=== PATIENT | female | born 1945 | race Caucasian/White ===

== ENCOUNTER → 2017-09-01 | Outpatient (CLI) | payer OTHER ==
[~2017-09-01] MED LIST: ALBUTEROL IH; ASPI-1181 PO; CLOP75TA14 PO; METO-391 PO; OMEG-148 PO; ROSU5TAB18 PO; VALA500T38 PO
== END | disposition home or self-care (01) ==
LOC: RAH 08:26
PROVIDERS: ATTEND Family Medicine
DX: Z12.31 Encounter for screening mammogram for malignant neoplasm of breast (principal)
CPT/HCPCS: 77067

== ENCOUNTER → 2017-10-10 | Outpatient (CLI) | payer OTHER ==
[~2017-10-10] MED LIST changes: +ALBUTERAL INHALER IH; +DIPH25 PO; +FISH1CAP49 PO; +LOSA50TA37 PO; +ROSU5TAB11 PO; -ROSU5TAB18 PO; +SYMBICORT IH
== END | disposition home or self-care (01) ==
LOC: SHCH 13:30
PROVIDERS: ATTEND Internal Medicine Cardiovascular Disease
DX: I25.10 Atherosclerotic heart disease of native coronary artery without angina pectoris (principal)
CPT/HCPCS: 93880

== ENCOUNTER → 2017-10-24 | Outpatient (CLI) | payer OTHER ==
[~2017-10-24] MED LIST changes: +ISOVUE-370 50ML VIAL IV ONE
== END | disposition home or self-care (01) ==
LOC: OIH 07:45
PROVIDERS: ATTEND Internal Medicine Cardiovascular Disease
DX: I65.23 Occlusion and stenosis of bilateral carotid arteries (principal); I70.90 Unspecified atherosclerosis; I77.9 Disorder of arteries and arterioles, unspecified
CPT/HCPCS: 70498; Q9967

== ENCOUNTER 2017-12-01 07:44 | Day surgery (SDC) | payer OTHER ==
[2017-11-28 10:35] VITALS: BP 182/91
[2017-11-28 11:17] LABS: HEMOGLOBIN A1C 5.8 % (4.0-6.0)
[2017-11-28 11:30] LABS: BILIRUBIN,TOTAL 0.6 mg/dL (0.2-1.0); CREATININE 0.7 mg/dL (0.5-1.5); POTASSIUM 4.4 mmol/L (3.5-5.1); T4 (THYROXINE) 6.4 mcg/dL (4.7-13.3); THYROID STIMULATING HORMONE 1.47 uIU/mL (0.36-3.74); TOTAL PROTEIN, SERUM 7.1 g/dL (6.0-8.3)
[2017-11-28 11:47] LABS: BASOPHILS % (AUTO) 0.8 % (0.0-5.0); EOSINOPHILS % (AUTO) 2.1 % (0.0-8.0); HEMATOCRIT 39.1 % (36-48); LYMPHOCYTES % (AUTO) 31.4 % (21.0-51.0); MEAN CORPUSCULAR HEMOGLOBIN 34.6 pg (27.0-33.0); MEAN CORPUSCULAR HGB CONC 35.8 g/dL (32.0-36.0); MEAN CORPUSCULAR VOLUME 96.8 fL (79-99); MONOCYTES % (AUTO) 7.6 % (3.0-13.0); NEUTROPHILS % (AUTO) 58.1 % (40.0-77.0); NUCLEATED RED BLOOD CELLS 0.1 % (0.0-0.19); PLATELET COUNT (AUTO) 317 K/uL (130-400); PROTHROMBIN TIME 10.5 SEC (9.6-11.6); RED BLOOD CELL COUNT(AUTO) 4.04 MIL/uL (4.00-5.50); RED CELL DISTRIBUTION WIDTH 13.3 % (11.0-15.5); WHITE BLOOD COUNT (AUTO) 5.2 K/uL (4.8-10.8)
[2017-11-28 11:56] LABS: APPEARANCE,URINE Clear (CLEAR); BILIRUBIN,URINE Negative (NEGATIVE); COLOR,URINE Yellow (YELLOW); GLUCOSE, URINE (UA) Negative (NEGATIVE); KETONES,URINE Negative (NEGATIVE); LEUKOCYTE ESTERASE ,URINE Trace (NEGATIVE); NITRATE,URINE Negative (NEGATIVE); OCCULT BLOOD,URINE Negative (NEGATIVE); PROTEIN,URINE Negative (NEGATIVE); UROBILINOGEN,URINE 0.2 mg/dL (0.2-1.0)
[2017-11-28 12:04] LABS: BACTERIA,URINE Rare /HPF (None Seen); RBC,URINE 0-1 /HPF (0-1); SQUAMOUS EPITHELIAL CELL,UR Rare /HPF (0-2); WBC,URINE 0-1 /HPF (0-1)
[2017-12-01] VITALS (10 sets, daily range): BP systolic 125–156; BP diastolic 54–77
[~2017-12-01] VITALS: Ht 154.9 cm; Wt 64.3 kg
[~2017-12-01 07:44] MED LIST changes: -ALBUTERAL INHALER IH; -DIPH25 PO; -FISH1CAP49 PO; -ISOVUE-370 50ML VIAL IV ONE; -LOSA50TA37 PO; -SYMBICORT IH
[2017-12-01] MEDS ORDERED: SODIUM CHLORIDE 0.9% 1000ML 1,000 ML IV ONE (09:36)
[2017-12-01] MEDS ORDERED: HEPARIN SODIUM 1000UNIT/ML 10ML VIAL ONE (14:06)
[2017-12-01] MEDS ORDERED: ISOVUE-370 50ML VIAL IV ONE ×2 (14:06→15:14)
[2017-12-01] MEDS ORDERED: IOPAMIDOL-370 100 ML VIAL IV ONE (14:06)
[2017-12-01] MEDS ORDERED: SODIUM BICARB 50MEQ 50ML VIAL ONE (14:06)
[2017-12-01] MEDS ORDERED: NITROGLYCERIN 5 MG/ML 10 ML VIAL IV ONE (14:06)
[2017-12-01] MEDS ORDERED: LIDOCAINE HCL 2% 20ML ONE (14:06)
[2017-12-01] MEDS ORDERED: HYDRALAZINE HCL 20 MG/ML VIAL ONE (15:08)
[2017-12-01] MEDS ORDERED: SODIUM CHLORIDE 0.9% 1000ML 1,000 ML IV SCH (15:15)
[2017-12-01] MEDS ORDERED: ACETAMINOPHEN-CODEINE 300/30MG TAB PO PRN (15:15)
[2017-12-01] MEDS ORDERED: ACETAMINOPHEN 325 MG TAB ONE (16:02)
[2017-12-01] MEDS ORDERED: ACETAMINOPHEN 325 MG TAB PO ONE (16:15)
[2018-01-01] MEDS ORDERED: FISH1CAP49 PO (13:48)
[2018-01-01] MEDS ORDERED: SYMBICORT IH (13:48)
[2018-01-01] MEDS ORDERED: ASPI-1181 PO (13:48)
[2018-01-01] MEDS ORDERED: DIPH25 PO (13:48)
[2018-01-01] MEDS ORDERED: LOSA50TA37 PO (13:48)
[2018-01-01] MEDS ORDERED: ALBUTERAL INHALER IH (13:48)
== END 2017-12-01 19:30 | disposition home or self-care (01) ==
LOC: DAH 07:44
PROVIDERS: ATTEND Internal Medicine Cardiovascular Disease
DX: I65.23 Occlusion and stenosis of bilateral carotid arteries (principal); I25.10 Atherosclerotic heart disease of native coronary artery without angina pectoris; Z79.899 Other long term (current) drug therapy; I10 Essential (primary) hypertension; E78.5 Hyperlipidemia, unspecified; F17.200 Nicotine dependence, unspecified, uncomplicated; Z98.890 Other specified postprocedural states; Z82.49 Family history of ischemic heart disease and other diseases of the circulatory system; Z88.0 Allergy status to penicillin; Z88.8 Allergy status to other drugs, medicaments and biological substances
CPT/HCPCS: 36223; 36415; 71045; 80053; 80061; 81001; 83036; 83880; 84436; 84443; 84479; 84481; 85025; 85610; 85730; 93005; 93458; A4606; C1760; C1769; C1894; J0360; J1644; J3490 ×3; J7030; Q9967 ×3; 84439

== ENCOUNTER → 2018-12-09 | Outpatient (CLI) | payer OTHER ==
[~2018-12-09] MED LIST changes: -ALBUTEROL IH; -CLOP75TA14 PO; +DIPH25 PO; +LOSA50TA64 PO; +SYMBICORT IH
== END | disposition home or self-care (01) ==
LOC: SHCH 10:33
PROVIDERS: ATTEND Internal Medicine Cardiovascular Disease
DX: I65.23 Occlusion and stenosis of bilateral carotid arteries (principal); T14.8XXA Other injury of unspecified body region, initial encounter; X58.XXXA Exposure to other specified factors, initial encounter; Y93.89 Activity, other specified; Y92.89 Other specified places as the place of occurrence of the external cause; Y99.8 Other external cause status
CPT/HCPCS: 93880

== ENCOUNTER → 2019-12-02 | Outpatient (CLI) | payer OTHER | END | disposition home or self-care (01) | DX: Z12.31 Encounter for screening mammogram for malignant neoplasm of breast (principal) ==

== ENCOUNTER → 2020-01-27 | Outpatient (CLI) | payer OTHER ==
[~2020-01-27] MED LIST changes: -ASPI-1181 PO; +ASPI-1443 PO; -ROSU5TAB11 PO; +ROSU5TAB12 PO; -VALA500T38 PO; +VALA500T42 PO
== END | disposition home or self-care (01) ==
LOC: SHCH 12:59
PROVIDERS: ATTEND Internal Medicine Cardiovascular Disease
DX: I25.10 Atherosclerotic heart disease of native coronary artery without angina pectoris (principal); R06.00 Dyspnea, unspecified
CPT/HCPCS: 93306; 93880

== ENCOUNTER → 2020-12-01 | Outpatient (CLI) | payer OTHER | END | disposition home or self-care (01) | LOC: RAH 08:27 | PROVIDERS: ATTEND Family Medicine | DX: Z12.31 Encounter for screening mammogram for malignant neoplasm of breast (principal) | CPT/HCPCS: 77067 ==

== ENCOUNTER → 2021-04-03 | Outpatient (CLI) | payer OTHER | END | disposition home or self-care (01) | LOC: SHCH 09:13 | PROVIDERS: ATTEND Internal Medicine Cardiovascular Disease | DX: I65.21 Occlusion and stenosis of right carotid artery (principal) | CPT/HCPCS: 93880 ==

== ENCOUNTER → 2022-11-14 | Outpatient (CLI) | payer OTHER ==
[~2022-11-14] MED LIST changes: +DIPH-1242 PO; -DIPH25 PO
== END | disposition home or self-care (01) ==
LOC: RAH 09:35
PROVIDERS: ATTEND Family Medicine
DX: Z12.31 Encounter for screening mammogram for malignant neoplasm of breast (principal)
CPT/HCPCS: 77067

== ENCOUNTER → 2023-11-17 | Outpatient (CLI) | payer OTHER ==
[~2023-11-17] MED LIST changes: -ROSU5TAB12 PO; +ROSU5TAB43 PO
== END | disposition home or self-care (01) ==
LOC: RAH 11:08
PROVIDERS: ATTEND Family Medicine
DX: Z12.31 Encounter for screening mammogram for malignant neoplasm of breast (principal); R92.323 Mammographic fibroglandular density, bilateral breasts
CPT/HCPCS: 77067

== ENCOUNTER → 2024-04-12 | Outpatient (CLI) | payer OTHER | END | disposition home or self-care (01) | LOC: SHCH 08:02 | PROVIDERS: ATTEND Internal Medicine Cardiovascular Disease | DX: I65.23 Occlusion and stenosis of bilateral carotid arteries (principal); I25.10 Atherosclerotic heart disease of native coronary artery without angina pectoris | CPT/HCPCS: 93880 ==

== ENCOUNTER 2025-02-04 22:05 | Inpatient (IN) | payer OTHER ==
[~2025-02-04] VITALS: Ht 154.9 cm; Wt 61.2 kg
[~2025-02-04 22:05] MED LIST changes: -ROSU5TAB43 PO; +ROSU5TAB51 PO
[2025-02-04 22:52] LABS: CREATININE 0.9 mg/dL (0.5-1.0); GLOMERULAR FILTR. RATE CALC 65.0 mL/min (>90); GLUCOSE,RANDOM 119.0 mg/dL (70-105); SODIUM SERUM 132.0 mmol/L (136-145); UREA NITROGEN, BLOOD 24.0 mg/dL (7-18)
--- NOTE | 2025-02-04 23:18 | ERN ---
General Chief Complaint: Hypertension Stated Complaint: HIGH BP Time Seen by MD: 22:09 Source: patient History of Present Illness Initial Comments Patient is a 79-year-old female with hypertension for which she takes metoprolol and losartan. She states that she was able to control her blood pressure with metoprolol alone for years and that recently her blood pressure started i ncreasing and her primary care doctor added losartan. The losartan was recently increased in dosage because of increased hypertension. Her family practice doctor has her monitoring her blood pressure regularly and earlier today she noted her blood pressure was greater than 220 systolic so she comes to the emergency room. She has no other symptoms. Timing/Duration: unsure Allergies: Coded Allergies: Penicillins (Unverified Allergy, Unknown, 12/01/17) naproxen (Unverified Allergy, Unknown, 12/01/17) Home Meds Reported Medications [Symbicort] No Conflict Check, IH AD PRN for SHORTNESS OF BREATH/WHEEZING 01/01/18 Losartan Potassium (Losartan Potassium) 50 Mg Tablet, 50 MG PO AD PRN for BP OVER 150 OR 180, TAB 01/01/18 Diphenhydramine HCl (Benadryl) 25 Mg Cap, 25 MG PO HS, CAP 01/01/18 Aspirin (Aspirin EC) 81 Mg Tablet.dr, 81 MG PO HS, TAB 01/01/18 [place]-3S/Dha/Epa/Fish Oil (Fish Oil 1,000 mg Softgel) 1 Each Capsule, 1 EACH PO AM, CAP 11/28/17 Rosuvastatin Calcium (Rosuvastatin Calcium) 5 Mg Tablet, 5 MG PO HS, TAB 11/28/17 Valacyclovir HCl (Valacyclovir) 500 Mg Tablet, 500 MG PO HS, TAB 11/28/17 Metoprolol Succinate (Metoprolol Succinate) 50 Mg Tab.er.24h, 50 MG PO HS, TAB 11/28/17 Past Medical History Past Medical History: Hypertension Past Surgical History: Other Surgical History Other: LEFT CARDIECTOMY ROS Dictation Aside from the increased blood pressure she has no symptoms. No headaches no dizziness no lightheadedness no chest pain. Physical Exam General Appearance: (+) mild distress Orientation: (+) alert, (+) oriented x 3 Head/Face Trauma: No Eye: bilateral eye normal inspection, bilateral eye PERRL, bilateral eye EOMI Ear, Nose, Throat: (+) hearing grossly normal, (+) normal ENT inspection, (+) moist mucous membraine Neck: (+) normal inspection, (+) supple, (+) full range of motion Respiratory: (+) chest non-tender, (+) lungs clear, (+) well ventilated Heart: (+) regular, (+) no gallop Vascular: (+) no edema, (+) normal peripheral pulse Gastrointestinal: (+) soft, (+) non-tender, (+) bowel sound present Back: (+) normal inspection Extremities: (+) normal range of motion, (+) non-tender Results Laboratory and Microbiology Lab and Micro Result Laboratory Tests Test 02/04/25 22:26 02/05/25 00:29 Sodium Level 132 mmol/L (136-145) L Potassium Level 3.6 mmol/L (3.5-5.1) Chloride Level 95 mmol/L (101-111) L Carbon Dioxide Level 27 mmol/L (21-32) Blood Urea Nitrogen 24 mg/dL (7-18) H Creatinine 0.9 mg/dL (0.5-1.0) Glomerular Filtration Rate Calc 65 mL/min (>90) Random Glucose 119 mg/dL (70-105) H Total Calcium 9.6 mg/dL (8.5-10.1) Troponin I High Sensitivity 101 ng/L (4-50) *H B-Type Natriuretic Peptide 87 pg/mL (0-100) Urine Color YELLOW (YELLOW) Urine Appearance CLEAR (CLEAR) Urine pH 5.5 (5.0-8.0) Urine Specific [place] 1.011 (1.001-1.031) Urine Protein NEGATIVE mg/dL (NEGATIVE) Urine Glucose (UA) NEGATIVE mg/dL (NEGATIVE) Urine Ketones 5 mg/dL (NEGATIVE) H Urine Occult Blood NEGATIVE (NEGATIVE) Urine Nitrate NEGATIVE (NEGATIVE) Urine Bilirubin NEGATIVE mg/dL (NEGATIVE) Urine Urobilinogen 0.2 mg/dL (0.2-1.0) Urine Leukocyte Esterase 250 Deisy/uL (NEGATIVE) H Urine RBC 2-5 /HPF (0-1) H Urine WBC 6-10 /HPF (0-1) H Urine Squamous Epithelial Cells MOD /HPF (0-2) Urine Bacteria MANY /HPF (None Seen) MDM MDM: Differential diagnosis: Acute AK, medication failure, renin angiotensin disorder, increased salt intake, Rationale: Tests considered and ordered secondary to shared decision making include: Previous outside records reviewed: Old ER visits. Risk of complication and/or morbidity or mortality of patient management: None Medications-Per medication reconciliation Need for hospitalization: Patient does meet criteria for hospitalization. Need for emergency major/minor surgery: No There are no social concerns with this patient. Prescription drug management Prescriptions will include symptomatic care Patient's prior external medical records from other ER visits were reviewed by me as indicated. Prior testing and results from previous visits were reviewed. Prior tests were taken into account with medical decision making and resource utilization, independent historian/historians were used to obtain complete medical history. EKG showed normal sinus rhythm possible left atrial enlargement. 2.5 mg dose of metoprolol has brought patient's heart rate and blood pressure down to more normal values. Unfortunately the metoprolol did not bring the patient's blood pressure and heart rate down to normal and an additional dose of hydralazine was added which proved ineffective. Also the IV dose of metoprolol as wearing off and the patient's blood pressure and tachycardia are increasing back to the rate they w ere when she came to the emergency room. I will start a Cardene drip and admit her to the hospital. Laboratory analysis shows a troponin of 101. Her BNP is normal. Chemistry panel shows mild hyponatremia hypochloremia. I independently interpreted the test that were performed, results were reviewed by me and considered findings on radiology if ordered. ED Course Orders Procedure Category Date Status Time 12 Lead Ekg Tracing- EKG 02/04/25 Logged Technical 22:16 Basic Metabolic Panel LAB 02/04/25 Complete 22:16 Metoprolol Tartrate PHA 02/04/25 Complete (Lopressor) 22:30 Troponin I High LAB 02/04/25 Complete Sensitivity 23:16 B-Type Natriuretic LAB 02/04/25 Complete Peptide 23:16 Hydralazine 20mg Inj PHA 02/04/25 Complete (Apresoline 20mg In 23:30 Metoprolol Succinate PHA 02/05/25 Complete (Toprol Xl) 00:00 Nicardipine 25mg Inj PHA 02/05/25 In Process (Cardene 25mg Inj) 00:30 Urinalysis Profile LAB 02/05/25 Complete 00:33 Culture Urine RAHUL 02/05/25 In Process 00:43 Nitrofurantoin PHA 8/9/25 Verified Monohyd/M-Cryst 09:00 Current Medications Medications (Trade) Dose Ordered Sig/Margarita Route PRN Reason Start Time Stop Time Status Last Admin Dose Admin Hydralazine HCl (APRESOLine 20MG INJ) 20 mg ONCE ONCE IV 02/04/25 23:30 02/04/25 23:31 DC 02/05/25 00:06 Metoprolol Succinate (TopROL XL) 50 mg ONCE ONCE PO 02/05/25 00:00 02/05/25 00:01 DC 02/05/25 00:06 Metoprolol Tartrate (loprESSOR) 2.5 mg ONCE ONCE IV 02/04/25 22:30 02/04/25 22:31 DC 02/04/25 22:28 Nicardipine HCl 25 mg/Sodium Chloride 250 ml @ 0 mls/hr PROTOCOL IV 02/05/25 00:30 03/07/25 00:29 02/05/25 00:47 Vital Signs Date Time Temp Pulse Resp B/P (MAP) Pulse Ox O2 Delivery O2 Flow Rate FiO2 02/05/25 00:47 100 185/65 02/05/25 00:27 91 16 170/63 98 Room Air* 0 02/04/25 23:06 98.2 80 18 166/65 99 Room Air* 0 02/04/25 22:28 99 236/110 02/04/25 22:16 98.2 98 18 250/130 99 Room Air* 0 02/04/25 22:07 97.9 103 20 244/116 98 Room Air DX & DISP Disposition: Inpatient Departure Impression: Primary Impression: Hypertension Condition: Stable Referrals: ABDON FRANCOIS MD (PCP) JAMEEL JESUS MD Feb 04, 2025 23:17
[2025-02-05] VITALS (19 sets, daily range): BP systolic 106–191; BP diastolic 46–86; PULSE 71–90; RESP 12–21; TEMP 97.9–99; O2SAT 99
[2025-02-05 00:41] LABS: APPEARANCE,URINE CLEAR (CLEAR); GLUCOSE, URINE (UA) NEGATIVE (NEGATIVE); LEUKOCYTE ESTERASE ,URINE 250 Leu/uL (NEGATIVE); NITRATE,URINE NEGATIVE (NEGATIVE); OCCULT BLOOD,URINE NEGATIVE (NEGATIVE)
[2025-02-05 00:43] LABS: ADD UA MICROSCOPIC YES
[2025-02-05 00:47] LABS: SQUAMOUS EPITHELIAL CELL,UR MOD /HPF (0-2)
[2025-02-05] MEDS: LACTATED RINGERS 1000ML 1,000 ML IV SCH (01:30)
[2025-02-05] MEDS ORDERED: ALBUTEROL 0.083% 2.5 MG/3 ML INH IH PRN (01:30)
[2025-02-05] MEDS ORDERED: HYDROcodone/APAP 5/325 1 TAB TABLET PO PRN ×2 (01:30→08:00)
[2025-02-05] MEDS ORDERED: LOSA100T59 PO (03:38)
[2025-02-05] MEDS ORDERED: OMEP20TA2 PO (04:49)
[2025-02-05 05:40] LABS: CREATINE KINASE, TOTAL 67 U/L (21-232)
[2025-02-05] MEDS ORDERED: PoTASSium chl 10% ELIXIR 20MEQ 20 MEQ/15 ML UDCUP PO PRN (08:00)
[2025-02-05] MEDS: PoTASSium chloRIDE 20MEQ ER 20 MEQ ERTAB PO PRN (08:33)
[2025-02-05] MEDS: NITROFURANTOIN MONOHYD/M-CRYST 100 MG CAPSULE PO SCH (08:34)
[2025-02-05] MEDS: ASCORBIC ACID 500 MG TAB PO SCH (08:34)
[2025-02-05 08:52] LABS: IMMATURE GRANULOCYTE ABSOLUTE 0.03 K/uL (0-1); NUCLEATED RED BLOOD CELLS 0.0 % (0.0-0.19); PLATELET COUNT (AUTO) 323 K/uL (130-400); RED BLOOD CELL COUNT(AUTO) 4.27 MIL/uL (4.00-5.50); RED CELL DISTRIBUTION WIDTH 18.9 % (11.0-15.5); WHITE BLOOD COUNT (AUTO) 9.8 K/uL (4.8-10.8)
[2025-02-05] MEDS: ENOXAPARIN SODIUM 40 MG/0.4 ML SYRINGE SQ SCH (08:57)
[2025-02-05] MEDS ORDERED: NON-FORMULARY MEDICATION 1 EACH (Omeprazole Magnesium (Prilosec Otc) 20 MG) PO SCH (09:00)
[2025-02-05 09:14] LABS: ASPARTATE AMINOTRANSFERASE 21.0 U/L (10-37); CREATININE 0.8 mg/dL (0.5-1.0); GLOMERULAR FILTR. RATE CALC 75.0 mL/min (>90); GLUCOSE,RANDOM 118.0 mg/dL (70-105); PHOSPHORUS 3.6 mg/dL (2.5-4.9); SODIUM SERUM 134.0 mmol/L (136-145); TOTAL PROTEIN, SERUM 6.5 g/dL (6.0-8.3); UREA NITROGEN, BLOOD 23.0 mg/dL (7-18)
[2025-02-05] MEDS: MAGNESIUM 2GM PREMIX 50ML 50 ML IV PRN (11:05)
--- NOTE | 2025-02-05 11:36 | HP ---
[facility] HISTORY & PHYSICAL Date Patient Seen: Feb 05, 2025 Time of Visit: 11:28 Supervising Physician: Dr Reardon Primary Care Physician: [ ] Outpatient Specialists: [ ] Inpatient Consults: [facility] PROBLEM LIST: NSTEMI type 2 Hypertensive emergency Elevated troponins COPD no exacerbation Hx of Right Carotid endarterectomy 2018 Former smoker HPI: Patient is a 79-year-old female with past medical history for a left carotid endarterectomy performed in 2018, hypertension and former smoker who presented to the emergency department after being evaluated by her PCP. She was found to have systolics greater than 220 and was referred to emergency department. Patient ultimately required to be placed on a Cardene drip and was admitted to the ICU for hypertensive urgency. Other than a UTI patient's remaining labs were grossly normal. Patient remained on the Cardene until this morning when we are able to discontinue with p.r.n. antihypertensives. Her home medications antihypertensives heparin resumed. Patient with an elevated troponin, pending Cardiology consultation. Admitted under critical care Patient full code PAST MEDICAL HX: see above PAST SURGICAL HX: noncontributory SOCIAL HISTORY: No tobacco, ETOH, or illicit drug use Coded Allergies: Penicillins (Unverified Allergy, Unknown, 12/01/17) naproxen (Unverified Allergy, Unknown, 12/01/17) REVIEW OF SYSTEMS: 12 point ROS reviewed with patient. Pertinent positives mentioned above. Otherwise negative. PHYSICAL EXAM: GENERAL: alert, weak, awake oriented x 3 HEENT: EOMI, Sclera non icteric, moist mucosa NECK: Supple, no JVD, trachea midline LUNGS: Clear breath sounds bilaterally. No wheezes HEART: Regular rate and rhythm. Normal S1 and S2, without murmurs ABD: Abdomen soft, nontender. Bowel sounds present EXT: No clubbing cyanosis or edema NEURO: Alert and oriented to person, follows commands Vital Signs (last 8hr) Date Time Temp Pulse Resp B/P (MAP) Pulse Ox O2 Delivery O2 Flow Rate FiO2 02/05/25 08:15 98.1 79 18 145/70 96 Room Air 02/05/25 08:00 99 Room Air* 0 21 02/05/25 07:15 76 14 156/72 97 Room Air 02/05/25 05:41 74 16 116/46 95 02/05/25 05:11 75 17 120/55 95 02/05/25 05:00 76 15 94 02/05/25 04:42 81 21 155/71 96 02/05/25 04:26 90 12 157/70 97 02/05/25 04:21 Room Air* 0 21 02/05/25 04:11 98.8 85 18 147/63 96 02/05/25 04:00 86 14 96 02/05/25 03:56 89 14 150/68 97 02/05/25 03:41 81 16 121/45 96 Room Air* 0 21 LABS: Hematology Labs: Test 02/05/25 05:03 Range/Units White Blood Count 9.8 4.8-10.8 K/uL Red Blood Count 4.27 4.00-5.50 MIL/uL Hemoglobin 12.7 12.0-16.0 g/dL Hematocrit 36.9 36-48 % Mean Corpuscular Volume 86.4 79-99 fL Mean Corpuscular Hemoglobin 29.7 27.0-33.0 pg Mean Corpuscular Hemoglobin Concent 34.4 32.0-36.0 g/dL Red Cell Distribution Width 18.9 H 11.0-15.5 % Platelet Count 323 130-400 K/uL Mean Platelet Volume 10.1 7.5-10.5 fL Immature Granulocyte % (Auto) 0.3 0-1 % Neutrophils (%) (Auto) 80.2 H 40.0-77.0 % Lymphocytes (%) (Auto) 11.5 L 21.0-51.0 % Monocytes (%) (Auto) 6.1 3.0-13.0 % Eosinophils (%) (Auto) 1.7 0.0-8.0 % Basophils (%) (Auto) 0.2 0.0-5.0 % Neutrophils # (Auto) 7.8 H 1.8-7.7 K/uL Lymphocytes # (Auto) 1.1 1.0-4.8 K/uL Monocytes # (Auto) 0.6 0.1-1.0 K/uL Eosinophils # (Auto) 0.17 0.00-0.70 K/uL Basophils # (Auto) 0.02 0.00-0.20 K/uL Absolute Immature Granulocyte (auto 0.03 0-1 K/uL Nucleated Red Blood Cells 0.0 0.0-0.19 % Red Blood Cell Morphology See comments Chemistry Labs: Test 02/05/25 05:03 02/04/25 22:26 Range/Units Sodium Level 134 L 136-145 mmol/L Potassium Level 4.0 3.5-5.1 mmol/L Chloride Level 98 L 101-111 mmol/L Carbon Dioxide Level 28 21-32 mmol/L Blood Urea Nitrogen 23 H 7-18 mg/dL Creatinine 0.8 0.5-1.0 mg/dL Glomerular Filtration Rate Calc 75 >90 mL/min Random Glucose 118 H 70-105 mg/dL Total Calcium 9.0 8.5-10.1 mg/dL Phosphorus Level 3.6 2.5-4.9 mg/dL Magnesium Level 1.50 L 1.80-2.40 mg/dL Total Bilirubin 0.4 0.2-1.0 mg/dL Aspartate Amino Transf (AST/SGOT) 21 10-37 U/L Alanine Aminotransferase (ALT/SGPT) 23 12-78 U/L Alkaline Phosphatase 56 50-136 U/L Total Creatine Kinase 67 21-232 U/L Troponin I High Sensitivity 160 *H 4-50 ng/L Total Protein 6.5 6.0-8.3 g/dL Albumin 3.7 3.5-5.0 g/dL B-Type Natriuretic Peptide 87 0-100 pg/mL DIAGNOSTICS / RADIOLOGY RESULTS: [ ] PLAN Pending cardiology recommendations, telemetry Antibiotics for UTI Cardiac diet Adjustments to antihypertensives Patient reporting a headache, she is on chronic aspirin, we will order a CT scan along with the ultrasounds of bilateral carotids NEURO: Minimize central acting medications as possible. Fall Precautions. Well lighted room through the day and minimize interruptions through the night to prevent acute delirium. PULMONARY: Supplemental 02 as needed Titrate Fio2 to keep Spo2 > or = 90% DuoNebs and CPT as needed IS hourly while awake for pulmonary hygiene Out of bed to chair as tolerated VAP Bundle Vent/BIPAP Settings: [ ] Driving pressure: [ ] P Plat: [ ] Static C: [ ] Static R: [ ] P/F Ratio: [ ] CARDIOVASCULAR: Follow hemodynamics. Titrate vasopressor to keep MAP >65 or systolic blood pressure >95mmHg DIPS: [ ] LINES: [ ] GI & NUTRITION: Continue nutritional support Aspirations precautions Prokinetic agents and laxatives as needed KIDNEYS & ELECTROLYTES: Strict monitoring of intake and output Daily weights Avoid nephrotoxic agents Monitor electrolytes and replace as needed Goal urine output of 30mL/hr or 0.5mL/kg/hr Urine output: [ ] Fluid Balance: [ ] ENDOCRINE: Maintain blood glucose between 100-180 at all times. Insulin sliding scale for blood glucose management INFECTIOUS DISEASE: Trend temperature. Jarrell-culture if febrile. Micro: [ ] Antibiotics: [ ] HEMATOLOGY & COAGULATION: Monitor H&H. Keep Hgb > 7 Transfuse 1 unit of PRBC for Hgb < 7 Transfuse 1 pack of platelets of platelets < 20, 000 Watch for any signs and symptoms of bleeding SKIN: Pressure ulcer prevention per facility protocol Rehab: PT/OT Prophylaxis: GI: [ ] DVT: [ ] Code Status: Full Resuscitation Disposition: [ ] Other: Total patient care time exceeds 35 minutes excluding all procedures. Case was discussed and seen with my supervising physician. The above plan was formulated and agreed upon. DENYS LUNDBERG Feb 05, 2025 11:36 MICHELE REARDON MD Feb 07, 2025 15:20
[2025-02-05 11:51] LABS: CREATINE KINASE, TOTAL 73.0 U/L (21-232)
[2025-02-05 13:54] LABS: INR 1.03 (0.85-1.15)
--- NOTE | 2025-02-05 14:26 | EKG ---
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
[2025-02-05] MEDS: HYDROcodone/APAP 5/325 1 TAB TABLET PO PRN (14:32)
[2025-02-05] MEDS: amLODIPine 5 MG TAB PO SCH (16:58)
[2025-02-05] MEDS: amLODIPine 5 MG TAB ONE (16:58)
[2025-02-05 18:40] LABS: CREATINE KINASE, TOTAL 76.0 U/L (21-232)
--- NOTE | 2025-02-05 19:02 | CONS ---
[facility] CARDIOLOGY CONSULTATION NOTE Date Patient Seen: Feb 05, 2025 Time of Visit: 18:52 Reason for Consultation: [ Hypertensive emergency] History of Present Illness: [ Is a 81-year-old female patient that follows up in Cardiology Clinic with Dr. Arrieta, with a past medical history of hypertension, carotid artery disease, status post left carotid endarterectomy in 2018, [id number] CAD by coronary angiogram 2017, hyperlipidemia who presents to the emergency department after being evaluated by her PCP. She was found to have systolics greater than 220 and was referred to emergency department. Patient ultimately required to be placed on a Cardene drip and was admitted to the ICU for hypertensive emergency , patient was found with a UTI, troponin weakly elevated with a flattened trend, [phone], presenting ECG was nonischemic. Current blood pressure is 1 50-160, weaned off of all IV infusions, currently losartan 100 mg daily] Past Medical History: [Refer to chart ] Past Surgical History: [Refer to HPI] Family History: [Refer to HPI ] Social History: [Refer to HPI ] Habits: [Never] smoker. [Denies] alcohol consumption. [Denies] illicit drug use Review of Systems: Review of12 point system was negative set per HPI Physical Examination: GENERAL: [No acute distress.] HEAD: [Normal with no signs of head trauma.] EYES: [PERRLA, EOMI, conjunctiva and sclera normal.] ENT: [Hearing grossly intact, normal oropharynx.] NECK: [Supple without JVD. There is no tenderness, lymphadenopathy, or masses. No thyromegaly. Normal carotid upstrokes without bruits.] LUNGS: [Clear breath sounds bilaterally. No wheezes, or rhonchi.] HEART: [Normal rate and rhythm. Normal S1 and S2 without murmurs, gallop or rub.] VASC: [Peripheral pulses +2 bilaterally.] ABD: [Bowel sounds normal, soft, nontender, no masses, no organomegaly. No audible bruits.] : [Not examined] LYMPH: [No lymphadenopathy noted.] EXT: [No clubbing, cyanosis or edema.] SKIN: [No rashes or lesions noted.] NEURO: [Awake, alert, and oriented x3. No focal sensory or strength deficits noted.] Vital Signs (last 8hr) Date Time Temp Pulse Resp B/P (MAP) Pulse Ox O2 Delivery O2 Flow Rate FiO2 02/05/25 16:59 143/68 02/05/25 16:59 143/68 02/05/25 14:39 191/79 02/05/25 12:00 97.9 73 18 152/86 98 Room Air Laboratory: [ ] Hematology Labs: Test 02/05/25 05:03 Range/Units White Blood Count 9.8 4.8-10.8 K/uL Red Blood Count 4.27 4.00-5.50 MIL/uL Hemoglobin 12.7 12.0-16.0 g/dL Hematocrit 36.9 36-48 % Mean Corpuscular Volume 86.4 79-99 fL Mean Corpuscular Hemoglobin 29.7 27.0-33.0 pg Mean Corpuscular Hemoglobin Concent 34.4 32.0-36.0 g/dL Red Cell Distribution Width 18.9 H 11.0-15.5 % Platelet Count 323 130-400 K/uL Mean Platelet Volume 10.1 7.5-10.5 fL Immature Granulocyte % (Auto) 0.3 0-1 % Neutrophils (%) (Auto) 80.2 H 40.0-77.0 % Lymphocytes (%) (Auto) 11.5 L 21.0-51.0 % Monocytes (%) (Auto) 6.1 3.0-13.0 % Eosinophils (%) (Auto) 1.7 0.0-8.0 % Basophils (%) (Auto) 0.2 0.0-5.0 % Neutrophils # (Auto) 7.8 H 1.8-7.7 K/uL Lymphocytes # (Auto) 1.1 1.0-4.8 K/uL Monocytes # (Auto) 0.6 0.1-1.0 K/uL Eosinophils # (Auto) 0.17 0.00-0.70 K/uL Basophils # (Auto) 0.02 0.00-0.20 K/uL Absolute Immature Granulocyte (auto 0.03 0-1 K/uL Nucleated Red Blood Cells 0.0 0.0-0.19 % Red Blood Cell Morphology See comments Chemistry Labs: Test 02/05/25 17:45 02/05/25 05:03 02/04/25 22:26 Range/Units Total Creatine Kinase 76 21-232 U/L Troponin I High Sensitivity 539.5 *H 4-50 ng/L Sodium Level 134 L 136-145 mmol/L Potassium Level 4.0 3.5-5.1 mmol/L Chloride Level 98 L 101-111 mmol/L Carbon Dioxide Level 28 21-32 mmol/L Blood Urea Nitrogen 23 H 7-18 mg/dL Creatinine 0.8 0.5-1.0 mg/dL Glomerular Filtration Rate Calc 75 >90 mL/min Random Glucose 118 H 70-105 mg/dL Total Calcium 9.0 8.5-10.1 mg/dL Phosphorus Level 3.6 2.5-4.9 mg/dL Magnesium Level 1.50 L 1.80-2.40 mg/dL Total Bilirubin 0.4 0.2-1.0 mg/dL Aspartate Amino Transf (AST/SGOT) 21 10-37 U/L Alanine Aminotransferase (ALT/SGPT) 23 12-78 U/L Alkaline Phosphatase 56 50-136 U/L Total Protein 6.5 6.0-8.3 g/dL Albumin 3.7 3.5-5.0 g/dL B-Type Natriuretic Peptide 87 0-100 pg/mL Coagulation Labs: Test 02/05/25 13:34 Range/Units Prothrombin Time 10.9 9.6-11.6 SEC Prothromb Time International Ratio 1.03 0.85-1.15 Activated Partial Thromboplast Time 32.9 26.3-35.5 SEC Diagnostics / Radiology: [Copy/Paste Echos/Imaging Report here] Assessment: [Hypertension Coronary artery disease status post left carotid endarterectomy in 2018 [id number] coronary disease 50% stenosis ostial RCA and 60% stenosis mid RCA with 50% stenosis of the diagonal one been afebrile and 75% November 2017 Plan: [#hypertensive emergency She was found to have systolics greater than 220 and was referred to emergency department. Patient ultimately required to be placed on a Cardene drip and was admitted to the ICU for hypertensive emergency troponin weakly elevated with a flattened trend, [phone], presenting ECG was nonischemic. Current blood pressure is 150-160. Currently denying any cardiac symptoms or anginal equivalents Currently weaned off all IV infusions. Continue losartan 100 mg daily Start amlodipine 10 mg daily, discontinue metoprolol and start carvedilol 12.5 mg every 12 hours Discontinue clonidine. Patient remains hypertensive we will add [id number] mg daily Pending 2D echocardiogram results to assess systolic and valvular function Low suspicion for ACS Thank you for this consult cardiology will continue to follow, formal recommendations pending 2D echocardiogram results Benji delcid MD ] ATTESTATION BY PHYSICIAN I have seen and examined the patient, reviewed the above documentation, participated in medical decision making, made necessary modifications, and agree with the treatment plan as documented by my mid-level provider above. MD WYATT Marc JAMES R MD Feb 05, 2025 19:02
[2025-02-05] MEDS: ASPIRIN 81 MG EC TAB PO SCH (20:41)
[2025-02-05] MEDS ORDERED: EZET10TA81 PO (20:49)
[2025-02-05] MEDS: EZETIMIBE 10 MG TAB PO SCH (21:42)
[2025-02-06] VITALS (14 sets, daily range): BP systolic 131–170; BP diastolic 50–73; PULSE 68–80; RESP 11–21; TEMP 97.6–98.8; O2SAT 96
[2025-02-06 05:07] LABS: IMMATURE GRANULOCYTE ABSOLUTE 0.02 K/uL (0-1); NUCLEATED RED BLOOD CELLS 0.0 % (0.0-0.19); PLATELET COUNT (AUTO) 268 K/uL (130-400); RED BLOOD CELL COUNT(AUTO) 4.00 MIL/uL (4.00-5.50); RED CELL DISTRIBUTION WIDTH 18.7 % (11.0-15.5); WHITE BLOOD COUNT (AUTO) 7.5 K/uL (4.8-10.8)
[2025-02-06 05:25] LABS: CREATININE 0.7 mg/dL (0.5-1.0); GLOMERULAR FILTR. RATE CALC 88.0 mL/min (>90); GLUCOSE,RANDOM 103.0 mg/dL (70-105); PHOSPHORUS 3.3 mg/dL (2.5-4.9); SODIUM SERUM 133.0 mmol/L (136-145); UREA NITROGEN, BLOOD 17.0 mg/dL (7-18)
--- NOTE | 2025-02-06 06:56 | HMCIMG ---
EXAM: Non-contrast CT examination of the Brain. CLINICAL HISTORY: Headache. TECHNIQUE: Thin collimated axial CT images of the brain were obtained, with sagittal and coronal reformatted images also submitted. CT scan done according to ALARA (As Low as Reasonably Achievable). CONTRAST USED: None. COMPARISON: None provided. FINDINGS: No acute intracranial abnormality is present. Confluent hypodensities in the white matter of bilateral cerebral hemispheres, likely chronic small vessel ischemic changes. No acute cortical infarction, hemorrhage, mass or mass effect. No hydrocephalus or abnormal extra-axial fluid collections. The posterior fossa is unremarkable. The skull base and calvarium are intact. The included portions of the paranasal sinuses and mastoid air cells are clear. IMPRESSION: No acute intracranial abnormality is present. [id number] chronic small ischemic changes. /[place]
--- NOTE | 2025-02-06 08:05 | HMCIMG ---
EXAM: CR Chest, 1 View. CLINICAL HISTORY: pna COMPARISON: Chest single view 11/28/2017. FINDINGS: LUNGS: The lungs show no infiltrate or other acute finding. PLEURAL SPACES: No pleural effusion or pneumothorax. MEDIASTINUM: The cardiomediastinal silhouette is within normal limits. BONES: No aggressive appearing osseous lesion seen. IMPRESSION: No acute cardiopulmonary pathology is evident. /[place]
[2025-02-06] MEDS: LACTULOSE 20 GM/30 ML UDCUP PO PRN (08:23)
[2025-02-06] MEDS: amLODIPine 5 MG TAB PO SCH (08:24)
--- NOTE | 2025-02-06 08:38 | PN ---
[facility] CARDIOLOGY PROGRESS NOTE Date Patient Seen: Feb 06, 2025 Time of Visit: 08:37 Interval History: [ BP is better controlled] Physical Examination: GENERAL: [No acute distress.] HEAD: [Normal with no signs of head trauma.] EYES: [PERRLA, EOMI, conjunctiva and sclera normal.] ENT: [Hearing grossly intact, normal oropharynx.] NECK: [Supple without JVD. There is no tenderness, lymphadenopathy, or masses. No thyromegaly. Normal carotid upstrokes without bruits.] LUNGS: [Clear breath sounds bilaterally. No wheezes, or rhonchi.] HEART: [Normal rate and rhythm. Normal S1 and S2 without murmurs, gallop or rub.] VASC: [Peripheral pulses +2 bilaterally.] ABD: [Bowel sounds normal, soft, nontender, no masses, no organomegaly. No audible bruits.] : [Not examined] LYMPH: [No lymphadenopathy noted.] EXT: [No clubbing, cyanosis or edema.] SKIN: [No rashes or lesions noted.] NEURO: [Awake, alert, and oriented x3. No focal sensory or strength deficits not ed.] Laboratory: [ ] Hematology Labs: Test 02/06/25 04:58 02/05/25 05:03 Range/Units White Blood Count 7.5 4.8-10.8 K/uL Red Blood Count 4.00 4.00-5.50 MIL/uL Hemoglobin 11.8 L 12.0-16.0 g/dL Hematocrit 35.2 L 36-48 % Mean Corpuscular Volume 88.0 79-99 fL Mean Corpuscular Hemoglobin 29.5 27.0-33.0 pg Mean Corpuscular Hemoglobin Concent 33.5 32.0-36.0 g/dL Red Cell Distribution Width 18.7 H 11.0-15.5 % Platelet Count 268 130-400 K/uL Mean Platelet Volume 8.8 7.5-10.5 fL Immature Granulocyte % (Auto) 0.3 0-1 % Neutrophils (%) (Auto) 63.9 40.0-77.0 % Lymphocytes (%) (Auto) 17.1 L 21.0-51.0 % Monocytes (%) (Auto) 11.2 3.0-13.0 % Eosinophils (%) (Auto) 7.2 0.0-8.0 % Basophils (%) (Auto) 0.3 0.0-5.0 % Neutrophils # (Auto) 4.8 1.8-7.7 K/uL Lymphocytes # (Auto) 1.3 1.0-4.8 K/uL Monocytes # (Auto) 0.8 0.1-1.0 K/uL Eosinophils # (Auto) 0.54 0.00-0.70 K/uL Basophils # (Auto) 0.02 0.00-0.20 K/uL Absolute Immature Granulocyte (auto 0.02 0-1 K/uL Nucleated Red Blood Cells 0.0 0.0-0.19 % Red Blood Cell Morphology See comments Chemistry Labs: Test 02/06/25 04:58 02/05/25 17:45 02/05/25 05:03 02/04/25 22:26 Range/Units Sodium Level 133 L 136-145 mmol/L Potassium Level 4.1 3.5-5.1 mmol/L Chloride Level 100 L 101-111 mmol/L Carbon Dioxide Level 29 21-32 mmol/L Blood Urea Nitrogen 17 7-18 mg/dL Creatinine 0.7 0.5-1.0 mg/dL Glomerular Filtration Rate Calc 88 >90 mL/min Random Glucose 103 70-105 mg/dL Total Calcium 8.8 8.5-10.1 mg/dL Phosphorus Level 3.3 2.5-4.9 mg/dL Magnesium Level 1.60 L 1.80-2.40 mg/dL Troponin I High Sensitivity 486 *H 4-50 ng/L Procalcitonin < 0.05 L 0.05-0.5 ng/mL Total Creatine Kinase 76 21-232 U/L Total Bilirubin 0.4 0.2-1.0 mg/dL Aspartate Amino Transf (AST/SGOT) 21 10-37 U/L Alanine Aminotransferase (ALT/SGPT) 23 12-78 U/L Alkaline Phosphatase 56 50-136 U/L Total Protein 6.5 6.0-8.3 g/dL Albumin 3.7 3.5-5.0 g/dL B-Type Natriuretic Peptide 87 0-100 pg/mL Coagulation Labs: Test 02/05/25 20:35 02/05/25 13:34 Range/Units Activated Partial Thromboplast Time 31.2 26.3-35.5 SEC Prothrombin Time 10.9 9.6-11.6 SEC Prothromb Time International Ratio 1.03 0.85-1.15 Diagnostics / Radiology: [Copy/Paste Echos/Imaging Report here] Impression and Plan: [Hypertensive emergency Coronary artery disease status post left carotid endarterectomy in 2018 Mtkn-[id number] coronary disease 50% stenosis ostial RCA and 60% stenosis mid RCA with 50% stenosis of the diagonal one been afebrile and 75% November 2017 Plan: [#hypertensive emergency She was found to have systolics greater than 220 and was referred to emergency d epartment. Patient ultimately required to be placed on a Cardene drip and was admitted to the ICU for hypertensive emergency troponin weakly elevated with a flattened trend, [phone], presenting ECG was nonischemic. Current blood pressure is 150-160. Currently denying any cardiac symptoms or anginal equivalents Currently weaned off all IV infusions. Continue losartan 100 mg daily Start amlodipine 10 mg daily, discontinue metoprolol and start carvedilol 12.5 mg every 12 hours Discontinue clonidine. Patient remains hypertensive we will add [id number] mg daily Pending 2D echocardiogram results to assess systolic and valvular function Low suspicion for ACS Thank you for this consult cardiology will continue to follow, formal re commendations pending 2D echocardiogram results and carotid US. If within normal limits, she may be discharged. Jana Perkins MD ] JANA PERKINS MD Feb 06, 2025 08:38
--- NOTE | 2025-02-06 10:49 | PN ---
[facility] PROGRESS NOTE Date Patient Seen: Feb 06, 2025 Time of Visit: 10:46 Supervising Physician: Amber Primary Care Physician: [ ] Outpatient Specialists: [ ] Inpatient Consults: [facility] PROBLEM LIST: Hypertensive urgency Elevated troponins COPD Hx of Right Carotid endarterectomy 2018 Former smoker CAD Vytc-gj-zwsdsvhi coronary disease 50% stenosis, November 2017 INTERVAL HISTORY: Patient has been seen and examined, all labs and imaging were reviewed CT of the head negative Ultrasound carotids pending Patient is alert oriented x4, tolerating her diet, off drips overnight. BP more controlled Vital signs stable Afebrile No chest pain or shortness of breath reported overnight. Tolerating diet Plan: Following [facility] recommendations, adjustments to anti hypertensives. Off drips Follow pending ultrasound the carotids Heart healthy diet Telemetry REVIEW OF SYSTEMS: 12 point ROS reviewed with patient. Pertinent positives mentioned above. Otherwise negative. PHYSICAL EXAM: GENERAL: alert, weak, awake oriented x 3 HEENT: EOMI, Sclera non icteric, moist mucosa NECK: Supple, no JVD, trachea midline LUNGS: Clear breath sounds bilaterally. No wheezes HEART: Regular rate and rhythm. Normal S1 and S2, without murmurs ABD: Abdomen soft, nontender. Bowel sounds present EXT: No clubbing cyanosis or edema NEURO: Alert and oriented to person, follows commands Vital Signs (last 8hr) Date Time Temp Pulse Resp B/P (MAP) Pulse Ox O2 Delivery O2 Flow Rate FiO2 02/06/25 08:23 155/62 02/06/25 08:00 97.5 76 18 155/62 96 Room Air 02/06/25 08:00 96 Room Air* 0 21 02/06/25 05:53 77 18 169/54 96 Room Air 02/06/25 03:41 73 18 137/63 96 Room Air LABS: Hematology Labs: Test 02/06/25 04:58 02/05/25 05:03 Range/Units White Blood Count 7.5 4.8-10.8 K/uL Red Blood Count 4.00 4.00-5.50 MIL/uL Hemoglobin 11.8 L 12.0-16.0 g/dL Hematocrit 35.2 L 36-48 % Mean Corpuscular Volume 88.0 79-99 fL Mean Corpuscular Hemoglobin 29.5 27.0-33.0 pg Mean Corpuscular Hemoglobin Concent 33.5 32.0-36.0 g/dL Red Cell Distribution Width 18.7 H 11.0-15.5 % Platelet Count 268 130-400 K/uL Mean Platelet Volume 8.8 7.5-10.5 fL Immature Granulocyte % (Auto) 0.3 0-1 % Neutrophils (%) (Auto) 63.9 40.0-77.0 % Lymphocytes (%) (Auto) 17.1 L 21.0-51.0 % Monocytes (%) (Auto) 11.2 3.0-13.0 % Eosinophils (%) (Auto) 7.2 0.0-8.0 % Basophils (%) (Auto) 0.3 0.0-5.0 % Neutrophils # (Auto) 4.8 1.8-7.7 K/uL Lymphocytes # (Auto) 1.3 1.0-4.8 K/uL Monocytes # (Auto) 0.8 0.1-1.0 K/uL Eosinophils # (Auto) 0.54 0.00-0.70 K/uL Basophils # (Auto) 0.02 0.00-0.20 K/uL Absolute Immature Granulocyte (auto 0.02 0-1 K/uL Nucleated Red Blood Cells 0.0 0.0-0.19 % Red Blood Cell Morphology See comments Chemistry Labs: Test 02/06/25 04:58 02/05/25 17:45 02/05/25 05:03 02/04/25 22:26 Range/Units Sodium Level 133 L 136-145 mmol/L Potassium Level 4.1 3.5-5.1 mmol/L Chloride Level 100 L 101-111 mmol/L Carbon Dioxide Level 29 21-32 mmol/L Blood Urea Nitrogen 17 7-18 mg/dL Creatinine 0.7 0.5-1.0 mg/dL Glomerular Filtration Rate Calc 88 >90 mL/min Random Glucose 103 70-105 mg/dL Total Calcium 8.8 8.5-10.1 mg/dL Phosphorus Level 3.3 2.5-4.9 mg/dL Magnesium Level 1.60 L 1.80-2.40 mg/dL Troponin I High Sensitivity 486 *H 4-50 ng/L Procalcitonin < 0.05 L 0.05-0.5 ng/mL Total Creatine Kinase 76 21-232 U/L Total Bilirubin 0.4 0.2-1.0 mg/dL Aspartate Amino Transf (AST/SGOT) 21 10-37 U/L Alanine Aminotransferase (ALT/SGPT) 23 12-78 U/L Alkaline Phosphatase 56 50-136 U/L Total Protein 6.5 6.0-8.3 g/dL Albumin 3.7 3.5-5.0 g/dL B-Type Natriuretic Peptide 87 0-100 pg/mL Coagulation Labs: Test 02/05/25 20:35 02/05/25 13:34 Range/Units Activated Partial Thromboplast Time 31.2 26.3-35.5 SEC Prothrombin Time 10.9 9.6-11.6 SEC Prothromb Time International Ratio 1.03 0.85-1.15 DIAGNOSTICS / RADIOLOGY RESULTS: [ ] PLAN NEURO: Minimize central acting medications as possible. Maintain fall precautions, adequate lighting during the day PULMONARY: Supplemental 02 as needed. Maintain aspiration precautions at all times CARDIOVASCULAR: Follow hemodynamics. Vital signs per facility protocol GI & NUTRITION: Continue with nutritional support. Continue stool softeners and laxatives as needed. KIDNEYS & ELECTROLYTES: Strict monitoring of intake, output and overall fluid balance. Avoid nephrotoxic medications to the extent possible. Medications to be dosed according to renal function. Monitor electrolytes and replace as needed ENDOCRINE: Maintain blood glucose between 100-180 at all times. Hypoglycemia protocol in place INFECTIOUS DISEASE: Trend temperature, WBC and procalcitonin level Follow cultures, deescalate antibiotics as soon as possible. Panculture if new onset fever ONCOLOGY/HEMATOLOGY/COAGULATION: Monitor for s/s of bleeding Monitor hemoglobin, coagulation studies as needed SKIN: Pressure ulcer prevention per facility protocol Specialty mattress ORTHO/REHAB: Continue PT/OT Prophylaxis: Continue GI and DVT prophylaxis Code Status: Full Resuscitation Disposition: TBD Other: Total patient care time exceeds 35 minutes excluding all procedures. DENYS LUNDBERG Feb 06, 2025 10:49
--- NOTE | 2025-02-06 13:37 | HMCSR ---
APPROVED REPORT EXAM: Two-dimensional and M-mode echocardiogram with Doppler and color Doppler. INDICATION ICD: Hypertension 2D Dimensions RVDd3.2 cmLVEF(%)67.2 (>50%)LVED Vol(simp.)73.0 mL IVSd1.3 (0.7-1.1cm)FS(%)36 %LVES Vol(simp.)28.0 mL LVDd3.1 (3.8-5.6cm)LA (2D)2.5 (1.6-4.0cm)LVEF(%, simp.)62 % PWd1.3 (0.7-1.1cm)Ao Root(2D)2.4 (2.0-3.7cm)LA ESV INDEX (BP)29.34 mL/m2 LVDs2.0 (2.5-4.0cm)LVOT diam1.8 (1.8-2.4cm) Deformation Strain Apical 4-17.2 % Apical 2-14.4 % Apical 3-13.0 % Global Strain-14.9 % M-Mode Dimensions EPSS0.3 cm LA (MM)3.1 (1.6-4.0cm) Ao Root(MM)2.3 (2.0-3.7cm) Aortic Valve AoV Vmax1.8 m/Ayan Peak GR12.9 mmHgLVOT Vmax1.6 m/s AoV VTI0.4 mAo Mean GR7.6 mmHgLVOT VTI0.35 m LUIS (VMAX)2.30 cm2AVA (VTI) 2.2 cm2 Mitral Valve MV E Vmax74.6 cm/sDECEL Kiox893 ms MV A Ryjz063.4 cm/sP 1/2 T93 ms E/A ratio0.7MVA (PHT)2.4 cm2 TDI E/E' Agnnft52.1E/E' Urthelp49.6 Medial E' Peak V4.93 cm/sLateral E' Peak V7.07 cm/s Pulmonary Valve PV Vmax1.3 m/sPV VTI0.29 mPV Mean GR3.0 mmHg PV Peak GR6.9 mmHg Tricuspid Valve TR Vmax2.5 m/sRVSP19.6 mmHg TR Peak GR29.1 mmHg Left Ventricle The left ventricle is normal size. There is normal LV segmental wall motion. Mild concentric left kong tricular hypertrophy. Sigmoid septum is present. LVEF is 60-65%. Indeterminate diastolic dysfunction. Right Ventricle The right ventricle is normal size. The right ventricular systolic function is normal. Atria The left atrium size is normal. The right atrium size is normal. Aortic Valve The aortic valve is normal in structure. No aortic regurgitation is present. There is no aortic valvu lar stenosis. Mitral Valve The mitral valve is normal in structure. Posterior leaflet is mildly calcified. There is trace mitral valve regurgitation noted. There is no mitral valve stenosis. Tricuspid Valve The tricuspid valve is normal in structure. There is trace tricuspid valve regurgitation noted. Pulmonic Valve Pulmonic valve is not well visualized. There is no pulmonic valvular regurgitation. Great Vessels The aortic root is normal in size. The IVC was not visualized. Pericardium There is no pericardial effusion. Other Information Quality : Average Conclusion The left ventricle is normal size. LVEF is 60-65% with normal LV segmental wall motion. Mild concentric left ventricular hypertrophy. Sigmoid septum is present. Indeterminate diastolic dysfunction. The right ventricular systolic function is normal. Both atria are normal in size. No hemodynamically significant valvular abnormalities. There is no pericardial effusion.
--- NOTE | 2025-02-06 14:39 | HMCIMG ---
Exam: Bilateral Duplex Carotid Ultrasound History: History of endarterectomy Comparison: Ultrasound carotid 04/12/2024 Findings: Right Carotid: CCA peak systolic: 107 cm/s ICA peak systolic: 206 cm/s ICA end-diastolic velocity: 62 cm/s ECA peak systolic: 355 cm/s ICA/CCA ratio: 2.5 Vertebral artery flow: Antegrade Atherosclerotic plaque formation: Moderate origin and proximal internal carotid artery atherosclerosis. Mild atherosclerosis distal common carotid artery and carotid bulb Increased velocities right internal and external carotid arteries Spectral Broadening: Spectral broadening internal and external carotid artery Left Carotid: CCA peak systolic: 97 cm/s ICA peak systolic: 1 119 cm/s ICA end-diastolic velocity: 35 cm/s ECA peak systolic: 137 cm/s ICA/CCA ratio: 1.2 Vertebral artery flow: Antegrade Atherosclerotic plaque formation: Mild plaque formation mid to distal common carotid artery, carotid bulb and origin of the internal carotid artery, soft plaque formation Velocity measurements are within normal range. Spectral Broadening: Mild deceleration spectral broadening internal and external carotid arteries Impression: 50 to 69% stenosis right internal carotid artery by flow velocity criteria. Moderate hard plaque formation origin and proximal aspect of the right internal carotid artery. No hemodynamically significant stenosis on the left. Mild soft plaque formation mid and distal common carotid artery on the left and carotid bulb and origin of the left internal carotid artery. Consider CTA versus MRA of the extracranial carotid and vertebral arteries for further evaluation Sonographic NASCET Index This study proposed the incorporation of distal ICA flow velocity information on the conventional carotid Doppler study improving the diagnostic accuracy of PSV 1. <15% stenosis deceleration spectral broadening with a peak systolic velocity (PSV) <125 cm/s 16-49% stenosis pansystolic spectral broadening with a PSV <125 cm/s 50-69% stenosis pansystolic spectral broadening with a PSV of >125 cm/s and end diastolic velocity (EDV) <110 cm/s or ICA/CCA PSV ratio >2 but <4 70-79% stenosis pansystolic spectral broadening with PSV >270 cm/s or EDV >110 cm/s or ICA/CCA PSV ratio >4 80-99% stenosis: EDV >140 cm/s complete occlusion: no flow; terminal thump /[place]
[2025-02-07] VITALS (9 sets, daily range): BP systolic 126–174; BP diastolic 58–83; PULSE 78–88; RESP 14–21; TEMP 97.8–98.7; O2SAT 96
[2025-02-07 04:41] LABS: IMMATURE GRANULOCYTE ABSOLUTE 0.02 K/uL (0-1); NUCLEATED RED BLOOD CELLS 0.0 % (0.0-0.19); PLATELET COUNT (AUTO) 246 K/uL (130-400); RED BLOOD CELL COUNT(AUTO) 4.20 MIL/uL (4.00-5.50); RED CELL DISTRIBUTION WIDTH 18.4 % (11.0-15.5); WHITE BLOOD COUNT (AUTO) 7.0 K/uL (4.8-10.8)
[2025-02-07 04:50] LABS: CREATININE 0.6 mg/dL (0.5-1.0); GLOMERULAR FILTR. RATE CALC 92.0 mL/min (>90); GLUCOSE,RANDOM 99.0 mg/dL (70-105); SODIUM SERUM 134.0 mmol/L (136-145); UREA NITROGEN, BLOOD 13.0 mg/dL (7-18)
[2025-02-07 04:55] LABS: ASPARTATE AMINOTRANSFERASE 18.0 U/L (10-37); TOTAL PROTEIN, SERUM 6.4 g/dL (6.0-8.3)
--- NOTE | 2025-02-07 07:08 | PN ---
[facility] Cardiology Progress Note CARDIOLOGY PROGRESS NOTE FEBRUARY 07, 2025 Problems: 1. Hypertensive urgency 2. Troponin leak in the setting of severe hypertension consistent with type 2 [place], no angina and no ischemic ST changes 3. carotid artery disease status post left carotid endarterectomy 2017 4. CAD with 50% ostial RCA 60% mid RCA 50% stenosis of the diagonal artery and ejection fraction of 75% by cardiac catheterization November 2017 5. Dyslipidemia Patient has no chest pain or shortness of breath. Blood pressure is running 140/60 heart rate is in the 70s the patient is afebrile. Pressure earlier this morning was 115 systolic but was up to 207 during the night. White count 7.0 hemoglobin 12 platelet count [id number]. Potassium 4.0 BUN 13 creatinine 0.6. The patient continues on amlodipine aspirin atorvastatin carvedilol acetamide lo sartan pantoprazole potassium protocol. 2D echo shows ejection fraction of 60- 65%. There were no regional wall motion abnormalities. There was trace mitral regurgitation trace tricuspid regurgitation and no pericardial effusion. Carotid Doppler study showed a 50-70% stenosis in the right internal carotid artery no significant stenosis on the left. I will increase amlodipine to 10 mg daily. If pressures remain controlled today she can be discharged home and follow up with me as an outpatient. DENYS KING MD Feb 07, 2025 07:07
[2025-02-07] MEDS: amLODIPine 5 MG TAB PO SCH (09:00)
--- NOTE | 2025-02-07 10:04 | NUR ---
DCP: HOME Sw met with pt who lives with her Domestic Partner (12yrs) Jacques Garcia [phone]. Pt reports they are currently moving into their home in [place] from their home in . Denies issues affording homes, utilities or food. Pt states Jacques currently in for possible hip replacement surgery, son Zeeshan Johnson ([place]) [phone] is her MPOA. Prior to admission, pt states she was very active and independent, used no DME, provider or HH services. PCP is Lorie Guy and uses Paul in [place] for rx needs. [facility] [phone]. Addendum: 02/07/25 at 1010 by SADE FAIRCHILD Amended: Links added.
[2025-02-07] MEDS: diazePAM 5 MG TAB PO PRN (10:49)
--- NOTE | 2025-02-07 10:49 | NUR ---
Patient requested medication for anxiety at the moment.
[2025-02-07] MEDS: MAGNESIUM HYDROXIDE 30 ML/UDCUP PO PRN (16:03)
--- NOTE | 2025-02-07 19:17 | PN ---
[facility] PROGRESS NOTE Date Patient Seen: Feb 07, 2025 Time of Visit: 19:14 Supervising Physician: Regina Primary Care Physician: [ ] Outpatient Specialists: [ ] Inpatient Consults: [facility] PROBLEM LIST: NSTEMI type 2 Hypertensive urgency Elevated troponins COPD Hx of Right Carotid endarterectomy 2018 Former smoker INTERVAL HISTORY: Patient has been seen and examined, all labs and imaging were reviewed CT of the head negative, Ultrasound carotids stable Patient had been off cardeen drip all day, BP improved but then pvernight Systolics in the 200s Patient is alert oriented x4, tolerating her diet, off drips overnight. No headache, CP or SOB Afebrile Plan: Following [facility] recommendations, adjustments to anti hypertensives. Norvasc incr to 10 QD Off drips Follow pending ultrasound the carotids Heart healthy diet Telemetry REVIEW OF SYSTEMS: 12 point ROS reviewed with patient. Pertinent positives mentioned above. Otherwise negative. PHYSICAL EXAM: GENERAL: alert, weak, awake oriented x 3 HEENT: EOMI, Sclera non icteric, moist mucosa NECK: Supple, no JVD, trachea midline LUNGS: Clear breath sounds bilaterally. No wheezes HEART: Regular rate and rhythm. Normal S1 and S2, without murmurs ABD: Abdomen soft, nontender. Bowel sounds present EXT: No clubbing cyanosis or edema NEURO: Alert and oriented to person, follows commands Vital Signs (last 8hr) Date Time Temp Pulse Resp B/P (MAP) Pulse Ox O2 Delivery O2 Flow Rate FiO2 02/07/25 14:00 79 14 139/66 93 Room Air 02/07/25 12:00 97.9 78 17 126/58 93 Room Air LABS: Hematology Labs: Test 02/07/25 04:28 Range/Units White Blood Count 7.0 4.8-10.8 K/uL Red Blood Count 4.20 4.00-5.50 MIL/uL Hemoglobin 12.4 12.0-16.0 g/dL Hematocrit 36.5 36-48 % Mean Corpuscular Volume 86.9 79-99 fL Mean Corpuscular Hemoglobin 29.5 27.0-33.0 pg Mean Corpuscular Hemoglobin Concent 34.0 32.0-36.0 g/dL Red Cell Distribution Width 18.4 H 11.0-15.5 % Platelet Count 246 130-400 K/uL Mean Platelet Volume 9.1 7.5-10.5 fL Immature Granulocyte % (Auto) 0.3 0-1 % Neutrophils (%) (Auto) 63.0 40.0-77.0 % Lymphocytes (%) (Auto) 15.1 L 21.0-51.0 % Monocytes (%) (Auto) 11.9 3.0-13.0 % Eosinophils (%) (Auto) 9.4 H 0.0-8.0 % Basophils (%) (Auto) 0.3 0.0-5.0 % Neutrophils # (Auto) 4.4 1.8-7.7 K/uL Lymphocytes # (Auto) 1.1 1.0-4.8 K/uL Monocytes # (Auto) 0.8 0.1-1.0 K/uL Eosinophils # (Auto) 0.66 0.00-0.70 K/uL Basophils # (Auto) 0.02 0.00-0.20 K/uL Absolute Immature Granulocyte (auto 0.02 0-1 K/uL Nucleated Red Blood Cells 0.0 0.0-0.19 % Chemistry Labs: Test 02/07/25 04:28 02/06/25 04:58 Range/Units Sodium Level 134 L 136-145 mmol/L Potassium Level 4.0 3.5-5.1 mmol/L Chloride Level 99 L 101-111 mmol/L Carbon Dioxide Level 29 21-32 mmol/L Blood Urea Nitrogen 13 7-18 mg/dL Creatinine 0.6 0.5-1.0 mg/dL Glomerular Filtration Rate Calc 92 >90 mL/min Random Glucose 99 70-105 mg/dL Total Calcium 8.9 8.5-10.1 mg/dL Magnesium Level 1.70 L 1.80-2.40 mg/dL Total Bilirubin 0.3 0.2-1.0 mg/dL Aspartate Amino Transf (AST/SGOT) 18 10-37 U/L Alanine Aminotransferase (ALT/SGPT) 21 12-78 U/L Alkaline Phosphatase 53 50-136 U/L Troponin I High Sensitivity 355 *H 4-50 ng/L Total Protein 6.4 6.0-8.3 g/dL Albumin 3.2 L 3.5-5.0 g/dL Phosphorus Level 3.3 2.5-4.9 mg/dL Procalcitonin < 0.05 L 0.05-0.5 ng/mL Coagulation Labs: Test 02/05/25 20:35 Range/Units Activated Partial Thromboplast Time 31.2 26.3-35.5 SEC DIAGNOSTICS / RADIOLOGY RESULTS: [ ] PLAN NEURO: Minimize central acting medications as possible. Maintain fall precautions, adequate lighting during the day PULMONARY: Supplemental 02 as needed. Maintain aspiration precautions at all times CARDIOVASCULAR: Follow hemodynamics. Vital signs per facility protocol GI & NUTRITION: Continue with nutritional support. Continue stool softeners and laxatives as needed. KIDNEYS & ELECTROLYTES: Strict monitoring of intake, output and overall fluid balance. Avoid nephrotoxic medications to the extent possible. Medications to be dosed according to renal function. Monitor electrolytes and replace as needed ENDOCRINE: Maintain blood glucose between 100-180 at all times. Hypoglycemia protocol in place INFECTIOUS DISEASE: Trend temperature, WBC and procalcitonin level Follow cultures, deescalate antibiotics as soon as possible. Panculture if new onset fever ONCOLOGY/HEMATOLOGY/COAGULATION: Monitor for s/s of bleeding Monitor hemoglobin, coagulation studies as needed SKIN: Pressure ulcer prevention per facility protocol Specialty mattress ORTHO/REHAB: Continue PT/OT Prophylaxis: Continue GI and DVT prophylaxis Code Status: Full Resuscitation Disposition: TBD Other: Total patient care time exceeds 35 minutes excluding all procedures. DENYS LUNDBERG Feb 07, 2025 19:17
[2025-02-08] VITALS (10 sets, daily range): BP systolic 106–168; BP diastolic 51–114; PULSE 72–89; RESP 10–21; TEMP 98.4–99.3; O2SAT 92–96
[2025-02-08 05:26] LABS: IMMATURE GRANULOCYTE ABSOLUTE 0.03 K/uL (0-1); NUCLEATED RED BLOOD CELLS 0.0 % (0.0-0.19); PLATELET COUNT (AUTO) 312 K/uL (130-400); RED BLOOD CELL COUNT(AUTO) 4.29 MIL/uL (4.00-5.50); RED CELL DISTRIBUTION WIDTH 18.2 % (11.0-15.5); WHITE BLOOD COUNT (AUTO) 7.2 K/uL (4.8-10.8)
[2025-02-08 05:57] LABS: ASPARTATE AMINOTRANSFERASE 21.0 U/L (10-37); CREATININE 0.6 mg/dL (0.5-1.0); GLOMERULAR FILTR. RATE CALC 92.0 mL/min (>90); GLUCOSE,RANDOM 107.0 mg/dL (70-105); SODIUM SERUM 131.0 mmol/L (136-145); TOTAL PROTEIN, SERUM 6.8 g/dL (6.0-8.3); UREA NITROGEN, BLOOD 15.0 mg/dL (7-18)
--- NOTE | 2025-02-08 07:04 | PN ---
[facility] Cardiology Progress Note Cardiology progress note February 08, 2025 Problems: 1. Hypertensive urgency 2. Troponin leak in the setting of severe hypertension consistent with type 2 [place], no angina and no ischemic ST changes 3. carotid artery disease status post left carotid endarterectomy 2017 4. CAD with 50% ostial RCA 60% mid RCA 50% stenosis of the diagonal artery and ejection fraction of 75% by cardiac catheterization November 2017 5. Dyslipidemia Amlodipine was increased yesterday to 10 mg daily the patient continues on losartan 100 mg daily and carvedilol 12.5 mg b.i.d.. Pressure in the afternoon again tony up to the 150-160 range but since then has been remaining below 140 this morning she was 123 systolic heart rate in the 80s. Hemoglobin 12.6 platelet count [id number] potassium 3.6 BUN 15 creatinine 0.6. I would suggest increasing carvedilol to 25 mg b.i.d.. The patient can follow up with me as an outpatient after discharge. DENYS KING MD Feb 08, 2025 07:03
--- NOTE | 2025-02-08 08:19 | PN ---
[facility] PROGRESS NOTE Date Patient Seen: Feb 08, 2025 Time of Visit: 08:19 Supervising Physician: AVILA RODRIGUEZ MD Primary Care Physician: [ ] Outpatient Specialists: [ ] Inpatient Consults: [facility] PROBLEM LIST: NSTEMI type 2 Hypertensive urgency, RESOLVING Elevated troponins COPD Hx of Right Carotid endarterectomy 2018 Former smoker INTERVAL HISTORY: Patient is awake alert and oriented x4. no major overnight events. She has been hemodynamically stable afebrile with a max blood pressure 168/81 in the last24 hours heart rate in the 70s. Coreg has been increased to 25 mg p.o. b.i.d.. We will monitor today, possible discharge tomorrow. Per Cardiology patient can follow up as outpatient. On laboratory CBC unremarkable, chemistries shows a sodium of131 chloride of 95 random glucose of 107 mg/dL magnesium has been corrected to 2.0 today. Albumin of 3.4. Latest sensitive troponin trending down to 355. Patient denies any chest pain palpitations or shortness for breath. She does report increased anxiety and she has been receiving Valium PRN as needed. Plan: Following [facility] recommendations, adjustments to anti hypertensives. Norvasc incr to 10 QD, Coreg increased to 25 mg p.o. b.i.d. Off drips Follow pending ultrasound the carotids Heart healthy diet May downgrade to medical-surgical with telemetry. REVIEW OF SYSTEMS: General: No malaise or fever. Neurological: No fainting episodes or seizures. HEENT: No nasal congestion or nasal secretion. Respiratory: No cough, shortness of breath, or wheezing Cardiac: No chest pain or palpitations. Gastrointestinal: No vomiting or diarrhea. Genitourinary: No dysuria hematuria. Skin: No rashes or lesions. Hematological: No bruises or bleeding. Musculoskeletal: No joint pains or arthralgias. Psychiatric: No depression or panic attacks. PHYSICAL EXAM: GENERAL: alert, weak, awake oriented x 3 HEENT: EOMI, Sclera non icteric, moist mucosa NECK: Supple, no JVD, trachea midline LUNGS: Clear breath sounds bilaterally. No wheezes HEART: Regular rate and rhythm. Normal S1 and S2, without murmurs ABD: Abdomen soft, nontender. Bowel sounds present EXT: No clubbing cyanosis or edema NEURO: Alert and oriented to person, follows commands Vital Signs (last 8hr) Date Time Temp Pulse Resp B/P (MAP) Pulse Ox O2 Delivery O2 Flow Rate FiO2 02/08/25 04:00 98.4 87 21 123/60 96 Room Air LABS: Hematology Labs: Test 02/08/25 05:03 Range/Units White Blood Count 7.2 4.8-10.8 K/uL Red Blood Count 4.29 4.00-5.50 MIL/uL Hemoglobin 12.6 12.0-16.0 g/dL Hematocrit 37.6 36-48 % Mean Corpuscular Volume 87.6 79-99 fL Mean Corpuscular Hemoglobin 29.4 27.0-33.0 pg Mean Corpuscular Hemoglobin Concent 33.5 32.0-36.0 g/dL Red Cell Distribution Width 18.2 H 11.0-15.5 % Platelet Count 312 # 130-400 K/uL Mean Platelet Volume 8.9 7.5-10.5 fL Immature Granulocyte % (Auto) 0.4 0-1 % Neutrophils (%) (Auto) 61.4 40.0-77.0 % Lymphocytes (%) (Auto) 21.8 21.0-51.0 % Monocytes (%) (Auto) 11.0 3.0-13.0 % Eosinophils (%) (Auto) 5.0 0.0-8.0 % Basophils (%) (Auto) 0.4 0.0-5.0 % Neutrophils # (Auto) 4.4 1.8-7.7 K/uL Lymphocytes # (Auto) 1.6 1.0-4.8 K/uL Monocytes # (Auto) 0.8 0.1-1.0 K/uL Eosinophils # (Auto) 0.36 0.00-0.70 K/uL Basophils # (Auto) 0.03 0.00-0.20 K/uL Absolute Immature Granulocyte (auto 0.03 0-1 K/uL Nucleated Red Blood Cells 0.0 0.0-0.19 % Chemistry Labs: Test 02/08/25 05:03 02/07/25 04:28 Range/Units Sodium Level 131 L 136-145 mmol/L Potassium Level 3.6 3.5-5.1 mmol/L Chloride Level 95 L 101-111 mmol/L Carbon Dioxide Level 29 21-32 mmol/L Blood Urea Nitrogen 15 7-18 mg/dL Creatinine 0.6 0.5-1.0 mg/dL Glomerular Filtration Rate Calc 92 >90 mL/min Random Glucose 107 H 70-105 mg/dL Total Calcium 8.8 8.5-10.1 mg/dL Magnesium Level 2.00 1.80-2.40 mg/dL Total Bilirubin 0.4 0.2-1.0 mg/dL Aspartate Amino Transf (AST/SGOT) 21 10-37 U/L Alanine Aminotransferase (ALT/SGPT) 24 12-78 U/L Alkaline Phosphatase 57 50-136 U/L Total Protein 6.8 6.0-8.3 g/dL Albumin 3.4 L 3.5-5.0 g/dL Troponin I High Sensitivity 355 *H 4-50 ng/L DIAGNOSTICS / RADIOLOGY RESULTS: [[facility] [address] [place] [address] IMAGING REPORT Signed PATIENT: EMILIA NUNEZ MR#: [id number] : 1945 SEX: F AGE: 79 LOCATION: [facility] ORDER 49 STATUS: ADM IN REPORT#: [id number] SERVICE [id number] REASON: hypertension ORDERING PHYSICIAN: SANJAY SCHNEIDER MD PROCEDURE: ECHO CMP - ECHO 2-D COMPLETE APPROVED REPORT EXAM: Two-dimensional and M-mode echocardiogram with Doppler and color Doppler. INDICATION ICD: Hypertension 2D Dimensions RVDd 3.2 cm LVEF(%) 67.2 (>50%) LVED Vol(simp.) 73.0 mL IVSd 1.3 (0.7-1.1cm) FS(%) 36 % LVES Vol(simp.) 28.0 mL LVDd 3.1 (3.8-5.6cm) LA (2D) 2.5 (1.6-4.0cm) LVEF(%, simp.) 62 % PWd 1.3 (0.7-1.1cm) Ao Root(2D) 2.4 (2.0-3.7cm) LA ESV INDEX (BP) 29.34 mL/m2 LVDs 2.0 (2.5-4.0cm) LVOT diam 1.8 (1.8-2.4cm) Deformation Strain Apical 4 -17.2 % Apical 2 -14.4 % Apical 3 -13.0 % Global Strain -14.9 % M-Mode Dimensions EPSS 0.3 cm LA (MM) 3.1 (1.6-4.0cm) Ao Root(MM) 2.3 (2.0-3.7cm) Aortic Valve AoV Vmax 1.8 m/s Ao Peak GR 12.9 mmHg LVOT Vmax 1.6 m/s AoV VTI 0.4 m Ao Mean GR 7.6 mmHg LVOT VTI 0.35 m LUIS (VMAX) 2.30 cm2 LUIS (VTI) 2.2 cm2 Mitral Valve MV E Vmax 74.6 cm/s DECEL Time 395 ms MV A Vmax 105.4 cm/s P 1/2 T 93 ms E/A ratio 0.7 MVA (PHT) 2.4 cm2 TDI E/E' Medial 15.1 E/E' Lateral 10.6 Medial E' Peak V 4.93 cm/s Lateral E' Peak V 7.07 cm/s Pulmonary Valve PV Vmax 1.3 m/s PV VTI 0.29 m PV Mean GR 3.0 mmHg PV Peak GR 6.9 mmHg Tricuspid Valve TR Vmax 2.5 m/s RVSP 19.6 mmHg TR Peak GR 29.1 mmHg Left Ventricle The left ventricle is normal size. There is normal LV segmental wall motion. Mild concentric left ventricular hypertrophy. Sigmoid septum is present. LVEF is 60-65%. Indeterminate diastolic dysfunction. Right Ventricle The right ventricle is normal size. The right ventricular systolic function is normal. Atria The left atrium size is normal. The right atrium size is normal. Aortic Valve The aortic valve is normal in structure. No aortic regurgitation is present. There is no aortic valvular stenosis. Mitral Valve The mitral valve is normal in structure. Posterior leaflet is mildly calcified. There is trace mitral valve regurgitation noted. There is no mitral valve stenosis. Tricuspid Valve The tricuspid valve is normal in structure. There is trace tricuspid valve regurgitation noted. Pulmonic Valve Pulmonic valve is not well visualized. There is no pulmonic valvular regurgitation. Great Vessels The aortic root is normal in size. The IVC was not visualized. Pericardium There is no pericardial effusion. Other Information Quality : Average Conclusion The left ventricle is normal size. LVEF is 60-65% with normal LV segmental wall motion. Mild concentric left ventricular hypertrophy. Sigmoid septum is present. Indeterminate diastolic dysfunction. The right ventricular systolic function is normal. Both atria are normal in size. No hemodynamically significant valvular abnormalities. There is no pericardial effusion. DICTATED BY: SANJAY SCHNEIDER MD DATE: 02/06/25 1038 ELECTRONICALLY SIGNED BY: SANJAY SCHNEIDER MD DATE: 02/06/25 1337 ] PLAN NEURO: Minimize central acting medications as possible. Maintain fall precautions, adequate lighting during the day PULMONARY: Supplemental 02 as needed. Maintain aspiration precautions at all times CARDIOVASCULAR: Follow hemodynamics. Vital signs per facility protocol GI & NUTRITION: Continue with nutritional support. Continue stool softeners and laxatives as needed. KIDNEYS & ELECTROLYTES: Strict monitoring of intake, output and overall fluid balance. Avoid nephrotoxic medications to the extent possible. Medications to be dosed according to renal function. Monitor electrolytes and replace as needed ENDOCRINE: Maintain blood glucose between 100-180 at all times. Hypoglycemia protocol in place INFECTIOUS DISEASE: Trend temperature, WBC and procalcitonin level Follow cultures, deescalate antibiotics as soon as possible. Panculture if new onset fever ONCOLOGY/HEMATOLOGY/COAGULATION: Monitor for s/s of bleeding Monitor hemoglobin, coagulation studies as needed SKIN: Pressure ulcer prevention per facility protocol Specialty mattress ORTHO/REHAB: Continue PT/OT Prophylaxis: Continue GI and DVT prophylaxis Code Status: Full Resuscitation Disposition: TBD Other: Total patient care time exceeds 35 minutes excluding all procedures. ATTESTATION BY PHYSICIAN I attest that I reviewed and discussed the case with the Physician Punching Machine Operator as well as agree with the Physician Punching Machine Operator's findings, plans of care, and documentation above. Avila West MD, NELLY J [facility] Feb 08, 2025 08:19
[2025-02-08] MEDS: SIMETHICONE 80 MG TAB.CHEW PO PRN (18:19)
[2025-02-09 03:37] VITALS: BP 135/56; PULSE 73; RESP 20; TEMP 98
[2025-02-09 08:00] VITALS: BP 156/66; PULSE 75; RESP 18; TEMP 98.3; O2SAT 95
[2025-02-09 08:57] VITALS: BP 156/66
[2025-02-09] MEDS ORDERED: AMLO5TAB4 PO (09:31)
[2025-02-09] MEDS ORDERED: CARV25TA PO (09:31)
[2025-02-09] MEDS ORDERED: LOSA-420 PO (09:31)
[2025-02-09] MEDS ORDERED: ATOR10 PO (09:31)
[2025-02-09] MEDS ORDERED: NITR100C4 PO (09:31)
[2025-02-09] MEDS ORDERED: HYDR-3422 PO (09:34)
--- NOTE | 2025-02-09 09:35 | DS ---
[facility] DISCHARGE SUMMARY Date Patient Seen: Feb 09, 2025 Time of Visit: 09:34 Supervising Physician: Yusef Kauffman MD Primary Care Physician: Lorie Guy MD Outpatient Specialists: [ ] Inpatient Consults: [facility] PROBLEM LIST: Hypertensive urgency, Resolved NSTEMI type 2 2/2 to above Elevated troponins POA, now decreasing COPD Coronary artery stenosis with Hx of Right Carotid endarterectomy 2017 Former smoker HOSPITAL COURSE: HPI Patient was referred to the ED by her primary care provider after being found to have systolic blood pressure greater than 220 mm Hg. In the ED she was started on nicardipine for blood pressure control and admitted to the ICU for management of hypertensive emergency. She was also found to have mildly elevated troponins with a peak sensitive troponin of 539 and trending down. She was also noted to have a urinary tract infection on arrival to the ED with [id number] CFU on urine culture. Cardiology was consulted and made the following medication adjustments: Amlodipine 10 mg p.o. daily added Atorvastatin 10 mg p.o. at bedtime Carvedilol 25 mg p.o. b.i.d. Metoprolol was discontinued Losartan 100 mg p.o. daily Blood pressure improved with the therapy with maximum inpatient blood pressure 156/66 mm Hg and a most recent blood pressure 134/56 in the last 24 hours. Heart rate in the 70s O2 saturation 94% on room air she remained hemodynamically stable and tolerating medication change without adverse effects. She did voice she was under a lot of stress while in the hospital given her has been deteriorated health. She reports feeling very sad and teary but denies any thoughts of hurting herself or others denies any suicidal ideation while in the hospital. emergency services dispatcher did provide some emotional support and visit with the patient. [facility] Hotline number also provided to pt. Patient's [id number] we will be picking up patient from hospital on DC. Otherwise patient is stable for discharge. CHRONIC PROBLEMS: continue previous management per PCP unless otherwise indicated STAMPING DIE MAKER FINDINGS/RECOMMENDATIONS: Per swahili teacher: Problems: 1. Hypertensive urgency 2. Troponin leak in the setting of severe hypertension consistent with type 2 MA, no angina and no ischemic ST changes 3. carotid artery disease status post left carotid endarterectomy 2017 4. CAD with 50% ostial RCA 60% mid RCA 50% stenosis of the diagonal artery and ejection fraction of 75% by cardiac catheterization November 2017 5. Dyslipidemia Amlodipine was increased yesterday to 10 mg daily the patient continues on losartan 100 mg daily and carvedilol 12.5 mg b.i.d.. Pressure in the afternoon again tony up to the 150-160 range but since then has been remaining below 140 this morning she was 123 systolic heart rate in the 80s. Hemoglobin 12.6 platel et count 100504 potassium 3.6 BUN 15 creatinine 0.6. I would suggest increasing carvedilol to 25 mg b.i.d.. The patient can follow up with me as an outpatient after discharge. PROCEDURES: as mentioned above Pt hemodynamically stable and afebrile at time of discharge. PCP notified of patients admission, hospital course and discharge. New Medications: Hydroxyzine HCl (Hydroxyzine HCl) 50 Mg Tablet 1 TAB PO HS for anxiety for 30 Days, #10 TAB 0 Refills NEEDED FOR ANXIETY AT HS Amlodipine Besylate (Norvasc 5Mg Tab) 5 Mg Tablet 10 MG PO DAILY, #30 TAB 1 Refill Atorvastatin Calcium (Lipitor) 10 Mg Tab 10 MG PO HS, #30 TAB 1 Refill Carvedilol (Carvedilol) 25 Mg Tablet 25 MG PO BID, #60 TAB 1 Refill Losartan Potassium (Cozaar) 100 Mg Tablet 100 MG PO DAILY, #30 TAB 1 Refill Nitrofurantoin Monohyd/M-Cryst (Macrobid 100 mg Capsule) 100 Mg Capsule 100 MG PO BID, #6 CAP 0 Refills Continued Medications: Aspirin (Aspirin EC) 81 Mg Tablet.dr 81 MG PO HS, TAB Ezetimibe (Zetia) 10 Mg Tablet 10 MG PO HS, TAB Omeprazole Magnesium (Prilosec Otc) 20 Mg Tablet.dr 20 MG PO AM, TAB [Symbicort] () Unknown Dose IH AD PRN for SHORTNESS OF BREATH/WHEEZING Valacyclovir HCl (Valacyclovir) 500 Mg Tablet 500 MG PO HS, TAB Discontinued Medications: Losartan Potassium (Losartan Potassium) 100 Mg Tablet 1 TAB PO DAILY for 30 Days, #30 TAB 0 Refills Metoprolol Succinate (Metoprolol Succinate) 50 Mg Tab.er.24h 50 MG PO HS, TAB Rosuvastatin Calcium (Rosuvastatin Calcium) 5 Mg Tablet 5 MG PO HS, TAB PHYSICAL EXAM: GENERAL: alert, weak, awake oriented x 3 HEENT: EOMI, Sclera non icteric, moist mucosa NECK: Supple, no JVD, trachea midline LUNGS: Clear breath sounds bilaterally. No wheezes HEART: Regular rate and rhythm. Normal S1 and S2, without murmurs ABD: Abdomen soft, nontender. Bowel sounds present EXT: No clubbing cyanosis or edema NEURO: Alert and oriented to person, follows commands FOLLOW-UP: Follow-up with PCP in 2-3 days Follow up with swahili teacher in 1-2 weeks. Patient has a appointment with Dr. Aguillon on 01/2025. Per pt she will be keeping this appt RECOMMENDATIONS: See Discharge Instructions This case was seen and discussed with my supervising physician. More than 30 minutes spent on discharge process, including evaluation of the patient, discussion with nursing staff, medication reconciliation and follow-up appointm ents ATTESTATION BY PHYSICIAN The patient has been seen and evaluated, the case has been discussed with the STITCHER STANDARD MACHINE, I agree with the clinical findings and plan of care. Yusef Kauffman MD, [facility] Feb 09, 2025 09:35
--- NOTE | 2025-02-09 10:21 | NUR ---
EMOTIONAL SUPPORT Sw visited with pt who was very emotional today. Pt reports her domestic partner(DP)is headed back from with his son, following eval for 4th hip surgery. DP is scheduled for surgery Feb 28. 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 Pt states she is overwhelmed with caregiving, moving into a new home, and her blood pressure issues. Pt has no family in [place], all in [place]. Her best friend is in [place]. DP's son and dgtr in law are minimal help with DP. Encouraged pt to talk to Dr Josh Guy her PCP regarding addition help from for DP in addition to his wound care. Also discussed discussing psych referral or meds to help her thru this difficult time.Pt states she does not really want to be on medication, feels once she is home she can pull herself together. Pt denies need for referral for psych care at this time, denies suicidal ideations. P states DP's daughter in law will take pt home now that pt is discharged. Daughter in law available if before 1. Pt CM and nurse made aware. emotional support provided to pt.
== END 2025-02-09 12:00 | disposition home or self-care (01) | DRG 281 ==
LOC: EDH 22:05 → EDHIP 02-05 01:15 → 2BH 02-05 04:31 → 2DH 02-08 18:59
PROVIDERS: ADMIT Internal Medicine; ATTEND Internal Medicine
DX: I16.0 Hypertensive urgency (principal); N39.0 Urinary tract infection, site not specified; I21.A1 Myocardial infarction type 2; E78.5 Hyperlipidemia, unspecified; I10 Essential (primary) hypertension; I25.10 Atherosclerotic heart disease of native coronary artery without angina pectoris; I65.21 Occlusion and stenosis of right carotid artery; F41.9 Anxiety disorder, unspecified; J44.9 Chronic obstructive pulmonary disease, unspecified; Z87.891 Personal history of nicotine dependence; Z88.0 Allergy status to penicillin; Z79.82 Long term (current) use of aspirin; Z79.899 Other long term (current) drug therapy
CPT/HCPCS: 36415; 70450; 71045; 80048; 80053; 81001; 82550; 83735; 83880; 84100; 84145; 84484; 85025; 85610; 85730; 87086; 93005; 93306; 93356; 93880; 94664; 96374; 99285; G0378; J0360; J1644; J1650; J2405; J3475; J3490; J7050; J7120

== ENCOUNTER → 2025-05-20 | Outpatient (CLI) | payer OTHER ==
[~2025-05-20] MED LIST changes: +AMLO5TAB4 PO; +ATOR10 PO; +CARV25TA PO; -DIPH-1242 PO; +EZET10TA81 PO; +HYDR-3422 PO; +LOSA-420 PO; -LOSA50TA64 PO; -METO-391 PO; +NITR100C4 PO; -OMEG-148 PO; +OMEP20TA2 PO; -ROSU5TAB51 PO
--- NOTE | 2025-05-20 20:48 | HMCIMG ---
US ABDOMEN COMPLETE Clinical Details: Unspecified abdominal pain Technique: Real-time ultrasound of the abdomen (complete) with image documentation. Findings: Liver: The liver measures 12 cm in size. A 5 mm cyst is noted in the right lobe. No mass or biliary dilatation is identified. The liver contours are smooth. Gallbladder: The gallbladder wall thickness measures 2 mm. No gallstones are seen. The gallbladder is normal in appearance without wall thickening. Common Bile Duct: The common bile duct measures 2 mm in diameter with no dilation. Pancreas: The pancreas appears within normal limits. Right Kidney: The right kidney measures 9.4 ??? 5.6 ??? 4.5 cm. A cyst measuring 1.3 ??? 1.1 ??? 1.3 cm is noted. The renal contour is normal with no mass, calculus, or hydronephrosis. Left Kidney: The left kidney measures 10 ??? 5.8 ??? 4.5 cm. The renal contour is normal without mass, calculus, or hydronephrosis. Spleen: The spleen measures 8.5 ??? 2.9 ??? 3 cm. It is normal in size and echogenicity with no mass identified. Aorta: No aneurysm or abnormality is detected; the aorta is within normal limits. Inferior Vena Cava (IVC): The IVC is normal in appearance as visualized. Miscellaneous: No other significant findings identified. Impression: * A 5 mm cyst is present in the right lobe of the liver. * A 1.3 cm cyst is present in the right kidney. * No acute abnormality detected in the pancreas, left kidney, spleen, aorta, or IVC. /[place]
== END | disposition home or self-care (01) ==
LOC: RAH 07:49
PROVIDERS: ATTEND Family Medicine
DX: N28.1 Cyst of kidney, acquired (principal); K76.89 Other specified diseases of liver; R10.9 Unspecified abdominal pain
CPT/HCPCS: 76700